=== PATIENT | male | born 1980 | race Caucasian/White ===

== ENCOUNTER 2016-06-04 13:42 | Emergency (ER) | payer OTHER ==
[~2016-06-04 13:42] MED LIST: BACTRIM DS 8001 TAB PO; CILOXAN 0.50 GTT/1 B OPH
[2016-06-04 14:03] VITALS: BP 131/81
== END 2016-06-04 15:54 | disposition admitted as inpatient to this hospital (09) ==
LOC: ERH 13:42
DX: R07.9 Chest pain, unspecified (principal)
CPT/HCPCS: 93005; 93010; 99281